=== PATIENT | male | born 1960 | race Caucasian/White ===

== ENCOUNTER 2021-09-03 17:20 | Inpatient (IN) | payer MEDICARE, OTHER ==
[2021-09-03] MEDS ORDERED: SODIUM CHLORIDE 0.9% 1,000 ML IV STA (17:33)
--- NOTE | 2021-09-03 17:36 | ED ---
General Adult HPI - General Chief complaint: Recheck/Abnormal Lab/Rx Stated complaint: Hypotensive, ETOH Time Seen by Provider: 09/03/21 17:22 Source: EMS Mode of arrival: EMS Limitations: no limitations - History of Present Illness Initial comments: Dictation was produced using [employer] dictation software. please excuse any grammatical, word or spelling errors. Chief Complaint: 61-year-old male presents to the emergency department for hypertension History of Present Illness: Is 61-year-old male who states he didn't suffer from depression for the last 7 days. [place] park. EMS was called for a wellness check. EMS arrived on scene checked his vital signs found to be hypotensive with systolics measuring between 70s and 80s systolic. He was seen with a bottle of hard liquor next to him. Patient states he barely drinks. Denies any pain complaints. No shortness of breath. Denies any lightheadedness. Patient has any medical problems. Since that he has not been eating and drinking well the last several days. The ROS documented in this emergency department record has been reviewed and confirmed by me. Those systems with pertinent positive or negative responses have been documented in the HPI. All other systems are other negative and/or noncontributory. PHYSICAL EXAM: General Impression: Alert and oriented x3, not in acute distress HEENT: Normocephalic atraumatic, extra-ocular movements intact, pupils equal and reactive to light bilaterally, dry mucous membranes Cardiovascular: Heart regular rate and rhythm Chest: Able to complete full sentences, no retractions, no tachypnea Abdomen: abdomen soft, non-tender, non-distended, no organomegaly Musculoskeletal: Pulses present and equal in all extremities, no peripheral edema Motor: no focal deficits noted Neurological: CN II-XII grossly intact, no focal motor or sensory deficits noted Skin: Intact with no visualized rashes Psych: Normal affect and mood ED course: 61-year-old male presents emergency department for hypertension. End upon arrival shows blood pressure 74/56, rest of vital signs within acceptable limits. Patient does not appear to be in any acute distress. He has no specific complaints. Examination is benign. Laboratory evaluation obtained. CBC is unremarkable. Coag panel is negative. Metabolic panel is within acceptable limits. Lactic acidosis 3.7. Calcium 7.9, blood alcohol level is 243. No acidosis. Prematurity peptide is 5250. Patient not showing any signs of respiratory distress. Does not have any lower extremity pitting edema. It is likely secondary to alcohol intoxication and dehydration. Patient is blood pressure was trended and improved after boluses of IV fluid. Patient will be admitted. Unclear how much alcohol patient drinks daily. Every 4 hours CIWA ordered and when necessary Ativan also ordered. [facility] Spoke with Dr. Reza. EKG interpretation: Ventricular rate 93, A. fib, QS 80, QTc 441. No WI prolongation, no QTC prolongation, no ST or T-wave changes noted. Patient reports he has history of A. fib but denies medical history. - Related Data Allergies Allergy/AdvReac Type Severity Reaction Status Date / Time No Known Allergies Allergy Verified 09/03/21 17:30 Review of Systems ROS Statement: Those systems with pertinent positive or pertinent negative responses have been documented in the HPI. ROS Other: All systems not noted in ROS Statement are negative. Past Medical History Past Medical History: No Reported History History of Any Multi-Drug Resistant Organisms: None Reported Past Surgical History: No Surgical Hx Reported Past Psychological History: No Psychological Hx Reported Smoking Status: Current every day smoker Past Alcohol Use History: Heavy Past Drug Use History: None Reported General Exam Limitations: no limitations Course Vital Signs 09/03/21 09/03/21 09/03/21 17:20 18:22 18:28 Temperature 97.5 F L Pulse Rate 93 93 Respiratory 18 18 18 Rate Blood Pressure 74/56 81/55 O2 Sat by Pulse 96 98 Oximetry 09/03/21 09/03/21 18:53 19:35 Temperature Pulse Rate 93 87 Respiratory 18 18 Rate Blood Pressure 84/50 94/66 O2 Sat by Pulse 94 L 98 Oximetry Medical Decision Making - Lab Data Result diagrams: 09/03/21 17:34 09/03/21 17:34 Lab Results 09/03/21 09/03/21 09/03/21 Range/Units 17:34 17:34 17:34 WBC 6.8 (3.8-10.6) k/uL RBC 3.94 L (4.30-5.90) m/uL Hgb 12.6 L (13.0-17.5) gm/dL Hct 38.3 L (39.0-53.0) % MCV 97.4 (80.0-100.0) fL MCH 32.0 (25.0-35.0) pg MCHC 32.8 (31.0-37.0) g/dL RDW 15.1 (11.5-15.5) % Plt Count 297 (150-450) k/uL MPV 8.1 Neutrophils % 66 % Lymphocytes % 24 % Monocytes % 7 % Eosinophils % 1 % Basophils % 0 % Neutrophils # 4.5 (1.3-7.7) k/uL Lymphocytes # 1.7 (1.0-4.8) k/uL Monocytes # 0.4 (0-1.0) k/uL Eosinophils # 0.1 (0-0.7) k/uL Basophils # 0.0 (0-0.2) k/uL PT 10.3 (9.0-12.0) sec INR 0.9 (<1.2) APTT 22.3 (22.0-30.0) sec Sodium 140 (137-145) mmol/L Potassium 4.0 (3.5-5.1) mmol/L Chloride 106 (98-107) mmol/L Carbon Dioxide 23 (22-30) mmol/L Anion Gap 11 mmol/L BUN 24 H (9-20) mg/dL Creatinine 0.98 (0.66-1.25) mg/dL Est GFR (CKD-EPI)AfAm >90 (>60 ml/min/1.73 sqM) Est GFR (CKD-EPI)NonAf 83 (>60 ml/min/1.73 sqM) Glucose 93 (74-99) mg/dL Lactic Ac Sepsis Rflx Plasma Lactic Acid Jermaine (0.7-2.0) mmol/L Calcium 7.9 L (8.4-10.2) mg/dL Magnesium 1.9 (1.6-2.3) mg/dL Total Bilirubin 0.4 (0.2-1.3) mg/dL AST 21 (17-59) U/L ALT 25 (4-49) U/L Alkaline Phosphatase 71 (38-126) U/L Troponin I (0.000-0.034) ng/mL NT-Pro-B Natriuret Pep pg/mL Total Protein 5.6 L (6.3-8.2) g/dL Albumin 3.1 L (3.5-5.0) g/dL TSH 2.250 (0.465-4.680) mIU/L Salicylates <1.0 mg/dL Acetaminophen <10.0 ug/mL Serum Alcohol 243 H* mg/dL 09/03/21 09/03/21 09/03/21 Range/Units 17:34 17:34 17:34 WBC (3.8-10.6) k/uL RBC (4.30-5.90) m/uL Hgb (13.0-17.5) gm/dL Hct (39.0-53.0) % MCV (80.0-100.0) fL MCH (25.0-35.0) pg MCHC (31.0-37.0) g/dL RDW (11.5-15.5) % Plt Count (150-450) k/uL MPV Neutrophils % % Lymphocytes % % Monocytes % % Eosinophils % % Basophils % % Neutrophils # (1.3-7.7) k/uL Lymphocytes # (1.0-4.8) k/uL Monocytes # (0-1.0) k/uL Eosinophils # (0-0.7) k/uL Basophils # (0-0.2) k/uL PT (9.0-12.0) sec INR (<1.2) APTT (22.0-30.0) sec Sodium (137-145) mmol/L Potassium (3.5-5.1) mmol/L Chloride (98-107) mmol/L Carbon Dioxide (22-30) mmol/L Anion Gap mmol/L BUN (9-20) mg/dL Creatinine (0.66-1.25) mg/dL Est GFR (CKD-EPI)AfAm (>60 ml/min/1.73 sqM) Est GFR (CKD-EPI)NonAf (>60 ml/min/1.73 sqM) Glucose (74-99) mg/dL Lactic Ac Sepsis Rflx Plasma Lactic Acid Jermaine 3.7 H* (0.7-2.0) mmol/L Calcium (8.4-10.2) mg/dL Magnesium (1.6-2.3) mg/dL Total Bilirubin (0.2-1.3) mg/dL AST (17-59) U/L ALT (4-49) U/L Alkaline Phosphatase (38-126) U/L Troponin I <0.012 (0.000-0.034) ng/mL NT-Pro-B Natriuret Pep 5250 pg/mL Total Protein (6.3-8.2) g/dL Albumin (3.5-5.0) g/dL TSH (0.465-4.680) mIU/L Salicylates mg/dL Acetaminophen ug/mL Serum Alcohol mg/dL 09/03/21 Range/Units 17:52 WBC (3.8-10.6) k/uL RBC (4.30-5.90) m/uL Hgb (13.0-17.5) gm/dL Hct (39.0-53.0) % MCV (80.0-100.0) fL MCH (25.0-35.0) pg MCHC (31.0-37.0) g/dL RDW (11.5-15.5) % Plt Count (150-450) k/uL MPV Neutrophils % % Lymphocytes % % Monocytes % % Eosinophils % % Basophils % % Neutrophils # (1.3-7.7) k/uL Lymphocytes # (1.0-4.8) k/uL Monocytes # (0-1.0) k/uL Eosinophils # (0-0.7) k/uL Basophils # (0-0.2) k/uL PT (9.0-12.0) sec INR (<1.2) APTT (22.0-30.0) sec Sodium (137-145) mmol/L Potassium (3.5-5.1) mmol/L Chloride (98-107) mmol/L Carbon Dioxide (22-30) mmol/L Anion Gap mmol/L BUN (9-20) mg/dL Creatinine (0.66-1.25) mg/dL Est GFR (CKD-EPI)AfAm (>60 ml/min/1.73 sqM) Est GFR (CKD-EPI)NonAf (>60 ml/min/1.73 sqM) Glucose (74-99) mg/dL Lactic Ac Sepsis Rflx Y Plasma Lactic Acid Jermaine (0.7-2.0) mmol/L Calcium (8.4-10.2) mg/dL Magnesium (1.6-2.3) mg/dL Total Bilirubin (0.2-1.3) mg/dL AST (17-59) U/L ALT (4-49) U/L Alkaline Phosphatase (38-126) U/L Troponin I (0.000-0.034) ng/mL NT-Pro-B Natriuret Pep pg/mL Total Protein (6.3-8.2) g/dL Albumin (3.5-5.0) g/dL TSH (0.465-4.680) mIU/L Salicylates mg/dL Acetaminophen ug/mL Serum Alcohol mg/dL Disposition Clinical Impression: Hypotension, Alcohol intoxication Disposition: ADMITTED IP TO THIS HOSP Condition: Serious Referrals: None,Stated [Primary Care Provider] - 1-2 days
[2021-09-03 17:50] LABS: Basophils % (A) 0 %; Eosinophils # (A) 0.1 k/uL (0-0.7); Eosinophils % (A) 1 %; HCT 38.3 % (39.0-53.0); HGB 12.6 gm/dL (13.0-17.5); Lymphocytes # (A) 1.7 k/uL (1.0-4.8); Lymphocytes % (A) 24 %; MCHC 32.8 g/dL (31.0-37.0); MCV 97.4 fL (80.0-100.0); Mean Platelet Volume 8.1; Monocytes # (A) 0.4 k/uL (0-1.0); Monocytes % (A) 7 %; Neutrophils # (A) 4.5 k/uL (1.3-7.7); Neutrophils % (A) 66 %; Platelet Count 297 k/uL (150-450); RBC 3.94 m/uL (4.30-5.90); RDW 15.1 % (11.5-15.5); WBC 6.8 k/uL (3.8-10.6)
[2021-09-03 17:52] LABS: INR 0.9 (<1.2); Prothrombin Time 10.3 sec (9.0-12.0)
[2021-09-03 17:53] LABS: Partial Thromboplastin Time 22.3 sec (22.0-30.0)
[2021-09-03 18:12] LABS: ALT 25 U/L (4-49); AST 21 U/L (17-59); Acetaminophen <10.0 ug/mL; African American GFR (CKD) >90 (>60 ml/min/1.73 sqM); Albumin 3.1 g/dL (3.5-5.0); Alkaline Phosphatase 71 U/L (38-126); Anion Gap 11 mmol/L; Blood Urea Nitrogen 24 mg/dL (9-20); Calcium 7.9 mg/dL (8.4-10.2); Carbon Dioxide 23 mmol/L (22-30); Chloride 106 mmol/L (98-107); Glucose 93 mg/dL (74-99); Magnesium 1.9 mg/dL (1.6-2.3); Non-African American GFR(CKD) 83 (>60 ml/min/1.73 sqM); Salicylate <1.0 mg/dL; Sodium 140 mmol/L (137-145); Total Bilirubin 0.4 mg/dL (0.2-1.3); Total Protein 5.6 g/dL (6.3-8.2)
[2021-09-03 18:23] LABS: Alcohol 243 mg/dL
[2021-09-03] MEDS ORDERED: SODIUM CHLORIDE 0.9% 1,000 ML IV ONE (18:25)
--- NOTE | 2021-09-03 18:40 | XR ---
EXAMINATION TYPE: XR chest 1V portable DATE OF EXAM: 09/03/2021 5:51 PM COMPARISON:None TECHNIQUE: XR chest 1V portable Frontal view of the chest. CLINICAL INDICATION:Male, 61 years old with history of hypotension; FINDINGS: Lungs/Pleura: Right lower lobe airspace opacities. No evidence pneumothorax pleural effusion. Pulmonary vascularity: Unremarkable. Heart/mediastinum: Cardiomediastinal silhouette is unremarkable. Musculoskeletal: No acute osseous pathology. IMPRESSION: Right lower lobe airspace opacities correlate for pneumonia.
[2021-09-03] MEDS ORDERED: NALOXONE 0.4 MG/ML 1 ML VIAL IV PRN (20:18)
[2021-09-03] MEDS ORDERED: LORazepam 2 MG/ML INJ IV PRN ×2 (20:19)
[2021-09-03] MEDS ORDERED: THIAMINE 100 MG/ML 2 ML VIAL IM STA (20:19)
[2021-09-03 20:43] LABS: Amphetamine Screen,Urine Not Detected (NotDetected); Barbiturate Screen,Urine Not Detected (NotDetected); Benzodiazepines Screen,Urine Not Detected (NotDetected); Cocaine Screen,Urine Not Detected (NotDetected); Methadone Screen, Urine Not Detected (NotDetected); Opiate Screen,Urine Not Detected (NotDetected); Oxycodone Screen, Urine Not Detected (NotDetected); Phencyclidine Screen,Urine Not Detected (NotDetected); Tricyclic Antidepressant,Urine Not Detected (NotDetected); Urn Cannabinoid Scrn Not Detected (NotDetected)
[2021-09-03] MEDS: THIAMINE 100 MG TAB PO SCH (22:15)
[2021-09-03] MEDS: SODIUM CHLORIDE 0.9% 1,000 ML IV SCH (22:26)
[2021-09-04] MEDS: SODIUM CHLORIDE 0.9% 1,000 ML IV SCH ×2 (05:08→15:18)
[2021-09-04] MEDS: LORazepam 2 MG/ML INJ IV PRN (05:10)
[2021-09-04] MEDS: THIAMINE 100 MG TAB PO SCH ×2 (08:04→18:07)
[2021-09-04] MEDS ORDERED: HYDROcodone/APAP 7.5-325MG 1 EACH TAB PO PRN (13:36)
[2021-09-04] MEDS: DIGOXIN 250 MCG TAB PO SCH (15:18)
--- NOTE | 2021-09-04 17:31 | P.HPIM ---
History of Present Illness H&P Date: 09/04/21 Chief Complaint: Alcohol intoxication/hypotension 61-year-old male patient brought to ED by EMS were called and [place] the [place]; patient was found to be hypotensive upon arrival of EMS with systolic blood pressure between 70s and 80s; patient had a bottle of hard liquor next to him Workup in ED with blood work reveals WBC of 6.8, hemoglobin of 12.6 and platelet count of 297, sodium 140, potassium 4.0, BUN/creatinine of 24/0.90; blood alcohol level was 243 Review of Systems REVIEW OF SYSTEMS: CONSTITUTIONAL: No fever, no malaise, no fatigue. HEENT: No recent visual problems or hearing problems. Denied any sore throat. CARDIOVASCULAR: No chest pain, orthopnea, PND, no palpitations, no syncope. PULMONARY: No shortness of breath, no cough, no hemoptysis. GASTROINTESTINAL: No diarrhea, no nausea, no vomiting, no abdominal pain. NEUROLOGICAL: No headaches, no weakness, no numbness. HEMATOLOGICAL: Denies any bleeding or petechiae. GENITOURINARY: Denies any burning micturition, frequency, or urgency. MUSCULOSKELETAL/RHEUMATOLOGICAL: Denies any joint pain, swelling, or any muscle pain. ENDOCRINE: Denies any polyuria or polydipsia. The rest of the 14-point review of systems is negative. Past Medical History Past Medical History: Atrial Fibrillation, Asthma, Heart Failure, COPD, Hypertension Additional Past Medical History / Comment(s): Chronic low back pain, DDD, ETOH abuse/pt states he has not drank in "months". History of Any Multi-Drug Resistant Organisms: None Reported Past Surgical History: Orthopedic Surgery, Tonsillectomy Additional Past Surgical History / Comment(s): L arm fracture with surgery/hardware, L ankle crush injury with surgery/hardware. Past Anesthesia/Blood Transfusion Reactions: No Reported Reaction Smoking Status: Current every day smoker - Past Family History Mother Family Medical History: Diabetes Mellitus Additional Family Medical History / Comment(s): Mother is . Father History Unknown: Yes Additional Family Medical History / Comment(s): Father is alive, pt does not have much contact with his father. Medications and Allergies Home Medications Medication Instructions Recorded Confirmed Type Albuterol Inhaler [Ventolin Hfa 2 puff INHALATION RT-Q4H PRN 09/03/21 09/03/21 History Inhaler] Digoxin [Lanoxin] 250 mcg PO DAILY 09/03/21 09/03/21 History FLUoxetine HCL [PROzac] 20 mg PO DAILY 09/03/21 09/03/21 History Fluticasone Propion/Salmeterol 1 puff INHALATION RT-BID 09/03/21 09/03/21 History [Wixela 250-50 Inhub] Furosemide [Lasix] 40 mg PO DAILY 09/03/21 09/03/21 History Gabapentin 600 mg PO TID PRN 09/03/21 09/03/21 History HYDROcodone/APAP 7.5-325MG [[place] 1 tab PO BID PRN 09/03/21 09/03/21 History 7.5-325] Metoprolol Succinate (ER) [Toprol 50 mg PO DAILY 09/03/21 09/03/21 History Xl] lisinopriL [Zestril] 2.5 mg PO DAILY 09/03/21 09/03/21 History predniSONE [Deltasone] 20 mg PO DAILY 09/03/21 09/03/21 History Allergies Allergy/AdvReac Type Severity Reaction Status Date / Time No Known Allergies Allergy Verified 09/03/21 21:08 Physical Exam Vitals: Vital Signs Temp Pulse Pulse Resp BP BP Pulse Ox 09/04/21 08:00 97.7 F 89 18 128/68 98 09/04/21 05:12 104 H 20 140/99 98 09/03/21 22:16 84 19 118/64 96 09/03/21 19:35 87 18 94/66 98 09/03/21 18:53 93 18 84/50 94 L 09/03/21 18:28 18 09/03/21 18:22 93 18 81/55 98 09/03/21 17:20 97.5 F L 93 18 74/56 96 Intake and Output 09/03/21 09/04/21 09/04/21 22:59 06:59 14:59 Other: Weight 86.183 kg 86.183 kg General Impression: Alert and oriented x3, not in acute distress HEENT: Normocephalic atraumatic, extra-ocular movements intact, pupils equal and reactive to light bilaterally, dry mucous membranes Cardiovascular: Heart regular rate and rhythm Chest: Able to complete full sentences, no retractions, no tachypnea Abdomen: abdomen soft, non-tender, non-distended, no organomegaly Musculoskeletal: Pulses present and equal in all extremities, no peripheral edema Motor: no focal deficits noted Neurological: CN II-XII grossly intact, no focal motor or sensory deficits noted Skin: Intact with no visualized rashes Psych: Normal affect and mood Results CBC & Chem 7: 09/03/21 17:34 09/03/21 17:34 Labs: Abnormal Lab Results - Last 24 Hours (Table) 09/03/21 09/03/21 09/03/21 Range/Units 00:00 17:34 17:34 RBC 3.94 L (4.30-5.90) m/uL Hgb 12.6 L (13.0-17.5) gm/dL Hct 38.3 L (39.0-53.0) % BUN 24 H (9-20) mg/dL Osmolality 354 H* (280-301) mosm/kg Plasma Lactic Acid Jermaine 4.2 H* (0.7-2.0) mmol/L Calcium 7.9 L (8.4-10.2) mg/dL Total Protein 5.6 L (6.3-8.2) g/dL Albumin 3.1 L (3.5-5.0) g/dL Serum Alcohol 243 H* mg/dL 09/03/21 09/03/21 09/04/21 Range/Units 17:34 20:02 04:11 RBC (4.30-5.90) m/uL Hgb (13.0-17.5) gm/dL Hct (39.0-53.0) % BUN (9-20) mg/dL Osmolality (280-301) mosm/kg Plasma Lactic Acid Jermaine 3.7 H* 3.0 H* 3.4 H* (0.7-2.0) mmol/L Calcium (8.4-10.2) mg/dL Total Protein (6.3-8.2) g/dL Albumin (3.5-5.0) g/dL Serum Alcohol mg/dL Thrombosis Risk Factor Assmnt - Choose All That Apply Any of the Below Risk Factors Present?: Yes Each Factor Represents 1 point: Abnormal pulmonary function (COPD) Other Risk Factors: Yes Each Risk Factor Represents 2 Points: Age 61-74 years Other congenital or acquired thrombophilia - If yes, enter type in comment: No Thrombosis Risk Factor Assessment Total Risk Factor Score: 3 Thrombosis Risk Factor Assessment Level: Moderate Risk Assessment and Plan Assessment: 1. EtOH intoxication/withdrawal; IV fluid hydration with normal saline; we will monitor liver enzymes and amylase/lipase periodically as needed; Protonix 40 mg daily - Thiamine 100 mg daily; CIWA protocol with Ativan 2. Hypotension; likely related to dehydration; improving with IV fluid 3. Mild renal injury/dehydration; IV heparin fluid hydration as indicated above 4. Lactic acidosis; IV fluid hydration in form of normal saline; lactic acidosis related to EtOH intoxication; monitor lactic acid levels 5. Atrial fibrillation; rate controlled on metoprolol 50 mg daily; digoxin 250 mg daily 6. Hypertension; blood pressure currently stable; we will restart patient on home dose of Toprol 50 mg daily tomorrow morning 7. COPD; not in exacerbation; continue home inhalers therapy in form of Symbicort DVT prophylaxis; SCDs/subcu Lovenox CODE STATUS; full code
[2021-09-04] MEDS: PANTOPRAZOLE 40 MG/10 ML VIAL IVP SCH (18:07)
[2021-09-04] MEDS ORDERED: LABETALOL 100 MG TAB PO ONE (19:30)
[2021-09-04] MEDS: SYMBICORT 80-4.5 MCG INHALER INHALATION SCH (20:40)
[2021-09-04] MEDS: ALBUTEROL NEBULIZED 2.5 MG/3 ML INHALATION PRN (20:40)
[2021-09-04] MEDS: HYDROcodone/APAP 5-325MG 1 EACH TAB PO PRN (22:28)
[2021-09-05] MEDS: SODIUM CHLORIDE 0.9% 1,000 ML IV SCH ×3 (00:34→12:10)
[2021-09-05] MEDS: THIAMINE 100 MG TAB PO SCH ×2 (07:18→16:35)
[2021-09-05] MEDS: SYMBICORT 80-4.5 MCG INHALER INHALATION SCH ×2 (07:28→21:02)
[2021-09-05] MEDS: HYDROcodone/APAP 5-325MG 1 EACH TAB PO PRN ×2 (08:14→16:35)
[2021-09-05] MEDS: METOPROLOL SUCCINATE (ER) 50 MG TAB.ER.24H PO SCH (09:26)
[2021-09-05] MEDS: FUROSEMIDE 40 MG TAB PO SCH (09:26)
[2021-09-05] MEDS: FLUoxetine HCL 20 MG CAP PO SCH (09:26)
[2021-09-05] MEDS: PANTOPRAZOLE 40 MG/10 ML VIAL IVP SCH (09:26)
[2021-09-05] MEDS: predniSONE 20 MG TAB PO SCH (09:27)
[2021-09-05] MEDS: DIGOXIN 250 MCG TAB PO SCH (09:27)
[2021-09-05] MEDS: LORazepam 2 MG/ML INJ IV PRN ×4 (09:33→21:27)
[2021-09-05 11:24] LABS: Basophils # (A) 0.03 X 10*3/uL (0.00-0.10); Basophils % (A) 0.4 %; Eosinophils # (A) 0.08 X 10*3/uL (0.04-0.35); Eosinophils % (A) 1.1 %; HCT 36.9 % (39.6-50.0); HGB 11.8 g/dL (13.0-17.0); Immature Grans, Automated 0.5 %; Lymphocytes # (A) 1.57 X 10*3/uL (0.90-5.00); Lymphocytes % (A) 20.9 %; MCH 31.6 pg (27.0-32.0); MCV 98.7 fL (80.0-97.0); Mean Platelet Volume 10.8 fL (9.5-12.2); Monocytes # (A) 0.64 X 10*3/uL (0.20-1.00); Monocytes % (A) 8.5 %; NRBC Per 100 WBC 0 /100 WBCS (0.0-0.0); Neutrophils # (A) 5.14 X 10*3/uL (1.80-7.70); Neutrophils % (A) 68.6 %; Platelet Count 228 X 10*3/uL (140-440); RBC 3.74 X 10*6/uL (4.40-5.60); RDW 14.6 % (11.5-14.5)
[2021-09-05 11:55] LABS: ALT 23 U/L (10-49); AST 16 U/L (14-35); African American GFR (CKD) 122.4 (60.0-200.0); Albumin 3.6 g/dL (3.8-4.9); Albumin/Globulin Ratio 1.64 (1.60-3.17); Alkaline Phosphatase 79 U/L (41-126); BUN/Creat Ratio 32.63 Ratio (12.00-20.00); Bilirubin, Conjugated <0.20 mg/dL (0.20-0.40); Blood Urea Nitrogen 20.2 mg/dL (9.0-27.0); Calcium 8.7 mg/dL (8.7-10.3); Carbon Dioxide 19.8 mmol/L (20.0-27.5); Chloride 105 mmol/L (96-109); Globulin 2.2 g/dL (1.6-3.3); Glucose 105 mg/dL (70-110); Non-African American GFR(CKD) 105.6 (60.0-200.0); Potassium 4.8 mmol/L (3.5-5.5); Sodium 138 mmol/L (135-145); Total Bilirubin <0.15 mg/dL (0.30-1.20); Total Protein 5.8 g/dL (6.2-8.2)
[2021-09-05] MEDS ORDERED: hydrALAZINE HCL 20 MG/ML 1 ML VIAL IM PRN (12:20)
[2021-09-05] MEDS ORDERED: hydrALAZINE HCL 20 MG/ML 1 ML VIAL IVP PRN (15:50)
[2021-09-05] MEDS: ALBUTEROL NEBULIZED 2.5 MG/3 ML INHALATION PRN (16:44)
--- NOTE | 2021-09-05 20:54 | XR ---
EXAMINATION TYPE: XR shoulder complete LT DATE OF EXAM: 09/05/2021 8:42 PM INDICATION: Patient age:Male; 61 years old; Reason for study: Pain, post fall prior to admission; COMPARISON: None TECHNIQUE: The left shoulder was examined in AP, internally rotated and axillary projections. FINDINGS: Calcified fragment seen off the location of the greater tuberosity best appreciated on sing le view. No other evidence of acute osseous pathology, joint dislocation, or soft tissue swelling. Th e remaining portions of the visualized chest are unremarkable. IMPRESSION: Acute fracture through the left greater tuberosity of the humerus.
--- NOTE | 2021-09-05 20:54 | XR ---
EXAMINATION TYPE: XR humerus LT DATE OF EXAM: 09/05/2021 8:42 PM INDICATION: Patient age:Male; 61 years old; Reason for study: Pain, post fall prior to admission; COMPARISON: Left shoulder radiograph same day TECHNIQUE: The left humerus was examined in AP, internally rotated and axillary projections. FINDINGS: Calcified fragment seen off the location of the greater tuberosity best appreciated on sing le view. No other evidence of acute osseous pathology, joint dislocation, or soft tissue swelling. Th e remaining portions of the visualized chest are unremarkable. IMPRESSION: Acute fracture through the left greater tuberosity of the humerus.
[2021-09-05] MEDS: GABAPENTIN 300 MG CAP PO PRN (21:28)
[2021-09-06] MEDS: SODIUM CHLORIDE 0.9% 1,000 ML IV SCH ×3 (01:01→11:28)
[2021-09-06] MEDS: SYMBICORT 80-4.5 MCG INHALER INHALATION SCH ×2 (07:13→20:45)
[2021-09-06] MEDS: ALBUTEROL NEBULIZED 2.5 MG/3 ML INHALATION PRN ×2 (07:13→11:05)
[2021-09-06] MEDS: HYDROcodone/APAP 5-325MG 1 EACH TAB PO PRN ×2 (07:18→13:39)
[2021-09-06] MEDS: METOPROLOL SUCCINATE (ER) 50 MG TAB.ER.24H PO SCH (07:18)
[2021-09-06] MEDS: predniSONE 20 MG TAB PO SCH (07:18)
[2021-09-06] MEDS: FUROSEMIDE 40 MG TAB PO SCH (07:18)
[2021-09-06] MEDS: PANTOPRAZOLE 40 MG TABLET PO SCH (07:18)
[2021-09-06] MEDS: FLUoxetine HCL 20 MG CAP PO SCH (07:18)
[2021-09-06] MEDS: THIAMINE 100 MG TAB PO SCH ×2 (07:18→17:07)
[2021-09-06] MEDS: DIGOXIN 250 MCG TAB PO SCH (08:35)
[2021-09-06] MEDS: LORazepam 2 MG/ML INJ IV PRN (11:51)
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
--- NOTE | 2021-09-06 15:19 | P.PN ---
Subjective Progress Note Date: 09/05/21 Principal diagnosis: EtOH intoxication/withdrawal Hypotension; possibly dehydration 61-year-old male patient brought to ED by EMS were called and [place] the park; patient was found to be hypotensive upon arrival of EMS with systolic blood pressure between 70s and 80s; patient had a bottle of hard liquor next to him Workup in ED with blood work reveals WBC of 6.8, hemoglobin of 12.6 and platelet count of 297, sodium 140, potassium 4.0, BUN/creatinine of 24/0.90; blood alcohol level was 243 Patient is seen and evaluated in room at bedside; patient complaining of left shoulder pain to her nursing staff; stat x-ray of left shoulder is completed which reveals acute fracture to left greater tuberosity of the humerus; orthopedic is consulted Objective - Vital Signs Vital signs: Vital Signs Temp 98.1 F 09/05/21 07:40 Pulse 82 09/05/21 07:40 Resp 16 09/05/21 07:40 BP 159/94 09/05/21 07:40 Pulse Ox 97 09/05/21 07:40 Intake & Output 09/04/21 09/05/21 09/05/21 18:59 06:59 18:59 Weight 86.183 kg Other: Voiding Method Toilet # Voids 3 # Bowel Movements 2 - Exam General Impression: Alert and oriented x3, not in acute distress HEENT: Normocephalic atraumatic, extra-ocular movements intact, pupils equal and reactive to light bilaterally, dry mucous membranes Cardiovascular: Heart regular rate and rhythm Chest: Able to complete full sentences, no retractions, no tachypnea Abdomen: abdomen soft, non-tender, non-distended, no organomegaly Musculoskeletal: Pulses present and equal in all extremities, no peripheral edema Motor: no focal deficits noted Neurological: CN II-XII grossly intact, no focal motor or sensory deficits noted Skin: Intact with no visualized rashes Psych: Normal affect and mood - Labs CBC & Chem 7: 09/05/21 07:10 09/05/21 07:10 Labs: Abnormal Lab Results - Last 24 Hours (Table) 09/05/21 09/05/21 Range/Units 07:10 07:10 RBC 3.74 L (4.40-5.60) X 10*6/uL Hgb 11.8 L (13.0-17.0) g/dL Hct 36.9 L (39.6-50.0) % MCV 98.7 H (80.0-97.0) fL RDW 14.6 H (11.5-14.5) % Carbon Dioxide 19.8 L (20.0-27.5) mmol/L BUN/Creatinine Ratio 32.63 H (12.00-20.00) Ratio Total Bilirubin <0.15 L (0.30-1.20) mg/dL Conjugated Bilirubin <0.20 L (0.20-0.40) mg/dL Total Protein 5.8 L (6.2-8.2) g/dL Albumin 3.6 L (3.8-4.9) g/dL Assessment and Plan Assessment: 1. EtOH intoxication/withdrawal; IV fluid hydration with normal saline; we will monitor liver enzymes and amylase/lipase periodically as needed; Protonix 40 mg daily - Thiamine 100 mg daily; CIWA protocol with Ativan 2. Hypotension; likely related to dehydration; improving with IV fluid 3. Mild renal injury/dehydration; IV heparin fluid hydration as indicated above 4. Lactic acidosis; IV fluid hydration in form of normal saline; lactic acidosis related to EtOH intoxication; monitor lactic acid levels 5. Atrial fibrillation; rate controlled on metoprolol 50 mg daily; digoxin 250 mg daily 6. Hypertension; blood pressure currently stable; we will restart patient on home dose of Toprol 50 mg daily tomorrow morning 7. COPD; not in exacerbation; continue home inhalers therapy in form of Symbicort DVT prophylaxis; SCDs/subcu Lovenox CODE STATUS; full code
--- NOTE | 2021-09-06 20:18 | P.PN ---
Subjective Progress Note Date: 09/06/21 Principal diagnosis: EtOH intoxication/withdrawal Hypotension; possibly dehydration 61-year-old male patient brought to ED by EMS were called and patient was [place] the park; patient was found to be hypotensive upon arrival of EMS with systolic blood pressure between 70s and 80s; patient had a bottle of hard liquor next to him Workup in ED with blood work reveals WBC of 6.8, hemoglobin of 12.6 and platelet count of 297, sodium 140, potassium 4.0, BUN/creatinine of 24/0.90; blood alcohol level was 243 Patient is seen and evaluated in room at bedside; patient complaining of left shoulder pain to her nursing staff; stat x-ray of left shoulder is completed which reveals acute fracture to left greater tuberosity of the humerus; orthopedic is consulted 09/06/2021 Patient is seen and evaluated; sitting up in bed; reports severe pain in left shoulder Vital signs stable with temperature of 97.5, pulse 53, respiration 18 and blood pressure 143/82, O2 saturation 97% on room air Shoulder x-ray reveals acute fracture through left greater tuberosity of humerus Patient has been evaluated by orthopedic surgery and is recommending conservative measures with use of an arm sling with utilization of ice to left shoulder for symptomatic relief; patient is to follow up with orthopedic surgeon 10-14 days for reevaluation Objective - Vital Signs Vital signs: Vital Signs Temp 97.5 F L 09/06/21 14:00 Pulse 79 09/06/21 14:00 Resp 18 09/06/21 14:00 BP 120/88 09/06/21 14:00 Pulse Ox 98 09/06/21 14:00 Intake & Output 09/05/21 09/06/21 09/06/21 18:59 06:59 18:59 Other: Voiding Method Toilet # Voids 2 3 - Exam General Impression: Alert and oriented x3, not in acute distress HEENT: Normocephalic atraumatic, extra-ocular movements intact, pupils equal and reactive to light bilaterally, dry mucous membranes Cardiovascular: Heart regular rate and rhythm Chest: Able to complete full sentences, no retractions, no tachypnea Abdomen: abdomen soft, non-tender, non-distended, no organomegaly Musculoskeletal: Pulses present and equal in all extremities, no peripheral edema Motor: no focal deficits noted Neurological: CN II-XII grossly intact, no focal motor or sensory deficits noted Skin: Intact with no visualized rashes Psych: Normal affect and mood - Labs CBC & Chem 7: 09/05/21 07:10 09/05/21 07:10 Assessment and Plan Assessment: 1. EtOH intoxication/withdrawal; IV fluid hydration with normal saline; we will monitor liver enzymes and amylase/lipase periodically as needed; Protonix 40 mg daily - Thiamine 100 mg daily; CIWA protocol with Ativan 2. Hypotension; likely related to dehydration; improving with IV fluid 3. Mild renal injury/dehydration; IV heparin fluid hydration as indicated above 4. Lactic acidosis; IV fluid hydration in form of normal saline; lactic acidosis related to EtOH intoxication; monitor lactic acid levels 5. Atrial fibrillation; rate controlled on metoprolol 50 mg daily; digoxin 250 mg daily 6. Hypertension; blood pressure currently stable; we will restart patient on home dose of Toprol 50 mg daily tomorrow morning 7. COPD; not in exacerbation; continue home inhalers therapy in form of Symbicort DVT prophylaxis; SCDs/subcu Lovenox CODE STATUS; full code
[2021-09-06] MEDS: GABAPENTIN 300 MG CAP PO PRN (20:45)
[2021-09-07] MEDS: HYDROcodone/APAP 5-325MG 1 EACH TAB PO PRN ×4 (00:12→19:14)
[2021-09-07] MEDS: SODIUM CHLORIDE 0.9% 1,000 ML IV SCH ×4 (01:53→18:06)
[2021-09-07] MEDS: SYMBICORT 80-4.5 MCG INHALER INHALATION SCH ×2 (08:54→22:04)
[2021-09-07] MEDS: FUROSEMIDE 40 MG TAB PO SCH (09:32)
[2021-09-07] MEDS: THIAMINE 100 MG TAB PO SCH ×2 (09:32→16:43)
[2021-09-07] MEDS: FLUoxetine HCL 20 MG CAP PO SCH (09:32)
[2021-09-07] MEDS: PANTOPRAZOLE 40 MG TABLET PO SCH (09:32)
[2021-09-07] MEDS: METOPROLOL SUCCINATE (ER) 50 MG TAB.ER.24H PO SCH (09:32)
[2021-09-07] MEDS: predniSONE 20 MG TAB PO SCH (09:32)
[2021-09-07] MEDS: DIGOXIN 250 MCG TAB PO SCH (09:33)
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
[2021-09-08] MEDS: HYDROcodone/APAP 5-325MG 1 EACH TAB PO PRN ×2 (01:55→08:40)
[2021-09-08] MEDS: SODIUM CHLORIDE 0.9% 1,000 ML IV SCH ×2 (04:05→10:44)
[2021-09-08] MEDS: GABAPENTIN 300 MG CAP PO PRN ×2 (04:47→10:24)
[2021-09-08 08:29] VITALS: RESP 18
[2021-09-08] MEDS: DIGOXIN 250 MCG TAB PO SCH (08:38)
[2021-09-08] MEDS: PANTOPRAZOLE 40 MG TABLET PO SCH (08:38)
[2021-09-08] MEDS: THIAMINE 100 MG TAB PO SCH (08:38)
[2021-09-08] MEDS: FUROSEMIDE 40 MG TAB PO SCH (08:39)
[2021-09-08] MEDS: METOPROLOL SUCCINATE (ER) 50 MG TAB.ER.24H PO SCH (08:39)
[2021-09-08] MEDS: FLUoxetine HCL 20 MG CAP PO SCH (08:39)
[2021-09-08] MEDS: SYMBICORT 80-4.5 MCG INHALER INHALATION SCH (08:39)
[2021-09-08] MEDS: predniSONE 20 MG TAB PO SCH (08:40)
[2021-09-08] MEDS: ALBUTEROL NEBULIZED 2.5 MG/3 ML INHALATION PRN (08:42)
[2021-09-08] MEDS ORDERED: HEPARIN SODIUM,PORCINE/PF 5,000 UNIT/0.5 ML SYRINGE SQ SCH (09:00)
[2021-09-08 09:29] LABS: Basophils # (A) 0.05 X 10*3/uL (0.00-0.10); Basophils % (A) 0.5 %; Eosinophils # (A) 0.04 X 10*3/uL (0.04-0.35); Eosinophils % (A) 0.4 %; HCT 44.4 % (39.6-50.0); HGB 13.7 g/dL (13.0-17.0); Immature Grans, Automated 0.6 %; Lymphocytes # (A) 2.45 X 10*3/uL (0.90-5.00); Lymphocytes % (A) 22.5 %; MCH 30.9 pg (27.0-32.0); MCHC 30.9 g/dL (32.0-37.0); Mean Platelet Volume 10.6 fL (9.5-12.2); Monocytes # (A) 0.98 X 10*3/uL (0.20-1.00); NRBC Per 100 WBC 0 /100 WBCS (0.0-0.0); Neutrophils # (A) 7.31 X 10*3/uL (1.80-7.70); Platelet Count 299 X 10*3/uL (140-440); RBC 4.44 X 10*6/uL (4.40-5.60); RDW 14.6 % (11.5-14.5); WBC 10.89 X 10*3/uL (4.50-10.00)
[2021-09-08 10:31] LABS: African American GFR (CKD) 105.5 (60.0-200.0); BUN/Creat Ratio 34.42 Ratio (12.00-20.00); Blood Urea Nitrogen 30.6 mg/dL (9.0-27.0); Calcium 9.7 mg/dL (8.7-10.3); Carbon Dioxide 23.2 mmol/L (20.0-27.5); Potassium 4.3 mmol/L (3.5-5.5)
[2021-09-08 15:00] VITALS: BP 108/77; PULSE 81; TEMP 97.4
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
== END 2021-09-08 16:45 | disposition home or self-care (01) | DRG 897 ==
LOC: EC 17:20 → 4SSUR 20:18
PROVIDERS: ADMIT Internal Medicine; ATTEND Internal Medicine
PROC: 2W39X1Z Immobilization of Left Upper Extremity using Splint (ICD-10-PCS; principal; 2021-09-06)
DX: F10.129 Alcohol abuse with intoxication, unspecified (principal); S42.252A Displaced fracture of greater tuberosity of left humerus, initial encounter for closed fracture; S22.42XA Multiple fractures of ribs, left side, initial encounter for closed fracture; E87.2 Acidosis; I11.0 Hypertensive heart disease with heart failure; I50.9 Heart failure, unspecified; I95.9 Hypotension, unspecified; I48.91 Unspecified atrial fibrillation; J44.9 Chronic obstructive pulmonary disease, unspecified; Y90.8 Blood alcohol level of 240 mg/100 ml or more; E86.0 Dehydration; F32.A Depression, unspecified; G89.29 Other chronic pain; M54.50 Low back pain, unspecified; M15.9 Polyosteoarthritis, unspecified; F17.200 Nicotine dependence, unspecified, uncomplicated; Z71.6 Tobacco abuse counseling; Z79.52 Long term (current) use of systemic steroids; Z79.51 Long term (current) use of inhaled steroids; Z79.899 Other long term (current) drug therapy; Z90.89 Acquired absence of other organs; Z87.81 Personal history of (healed) traumatic fracture; V13.4XXA Pedal cycle driver injured in collision with car, pick-up truck or van in traffic accident, initial encounter; Y93.55 Activity, bike riding; Z98.890 Other specified postprocedural states; Z83.3 Family history of diabetes mellitus
CPT/HCPCS: 36415; 71045; 80048; 80053; 80076; 80143; 80179; 80306; 80320; 83605; 83735; 83880; 83930; 84443; 84484; 85025; 85610; 85730; 93005; 94640; 96360; 96361; 96372; 99285